=== PATIENT | female | born 1965 | race Caucasian/White ===

== ENCOUNTER → 2023-07-28 06:27 | Day surgery (SDC) | payer OTHER, SELFPAY | LOC: GI 06:27 | PROVIDERS: ATTENDING PHYSICIAN Internal Medicine Gastroenterology; FAMILY PHYSICIAN Emergency Medicine | DX: K57.30 Diverticulosis of large intestine without perforation or abscess without bleeding (principal); K64.8 Other hemorrhoids; Z09 Encounter for follow-up examination after completed treatment for conditions other than malignant neoplasm; Z86.010 Personal history of colon polyps | CPT/HCPCS: 45378 ==

== ENCOUNTER 2023-08-29 09:53 | Emergency (ER) | payer OTHER, SELFPAY ==
[2023-08-29 10:11] VITALS: BP 161/109
[2023-08-29 10:30] VITALS: BP 117/83
[2023-08-29 11:00] VITALS: BP 120/78
[2023-08-29 11:01] VITALS: BMI 36.8
[2023-08-29] MEDS: CARDIZEM 125 IV (11:10)
[2023-08-29] MEDS: CARDIZEM 10 MG IV (11:11)
[2023-08-29 11:23] LABS: % Basophils 0.1 % (0-2); % Eosinophils 0.1 % (0-6); % Immature Granulocytes 0.6 % (0-0.5); % Lymphocytes 26.6 % (20.5-51.1); % Monocytes 9.1 % (1.7-9.3); % Neutrophils 63.5 % (42.2-75.2); Absolute Immature Granulocytes 0.1 10^3/uL (0-0.05); Absolute Lymphocytes 2.7 10^3/uL (1.2-3.4); Absolute Monocytes 0.9 10^3/uL (0.1-0.6); Absolute Neutrophils 6.5 10^3/uL (1.4-6.5); Hematocrit 40.6 % (37.0-47.0); Hemoglobin 14.3 g/dL (12.0-16.0); Mean Corp Hgb Conc. 35.2 g/dL (33.0-37.0); Mean Corpuscular Hgb 28.9 pg (27.0-31.0); Mean Corpuscular Volume 82.2 fL (81.0-99.0); Nucleated Red Blood Cells % 0 %; Platelet Count 362 10^3/uL (130-400); Red Blood Cell Count 4.94 10^6/uL (4.20-5.40); Red Cell Dist. Width 13.7 % (11.5-14.5); White Blood Cell Count 10.2 10^3/uL (4.8-10.8)
[2023-08-29 11:36] LABS: ALT (SGPT) 19 U/L (0-35); AST (SGOT) 23 U/L (14-36); Albumin 4.3 g/dl (3.5-5.0); Alkaline Phosphatase 90 U/L (38-126); Blood Urea Nitrogen 16 mg/dl (7-17); Calcium 9.1 mg/dl (8.4-10.2); Carbon Dioxide 24 mmol/L (22-30); Chloride 107 mmol/L (98-107); Estimated Creatinine Clearance 120 ml/min; Glucose 116 mg/dl (70-99); Magnesium 2.2 mg/dl (1.6-2.3); Potassium 4.1 mmol/L (3.5-5.1); Sodium 138 mmol/L (135-145); Total Bilirubin 0.8 mg/dl (0.2-1.3); Total Protein 7.4 g/dl (6.3-8.2); eGFR > 60.00
[2023-08-29 11:37] LABS: APTT 29.4 Sec (23.4-35.0)
[2023-08-29 12:00] VITALS: BP 103/73
[2023-08-29 12:07] LABS: TSH 1.27 uIU/ml (0.47-4.68)
[2023-08-29] MEDS: NSS 1000 IV (12:36)
[2023-08-29 13:00] VITALS: BP 113/87
[2023-08-29 14:00] VITALS: BP 110/84
[2023-08-29] MEDS: LOPRESSOR 100 MG PO (14:11)
[2023-08-29] MEDS: ELIQUIS 5 MG PO (14:11)
--- NOTE | 2023-08-29 14:19 | ED.GENMED ---
History of Present Illness
General
Chief Complaint: Heart Rate Problem
Source: patient
Time Seen by Provider: 08/29/23 10:26
Travel History
Have you had any contact with someone who has COVID-19?: No
Do you have any symptoms of coronavirus? Fever > 100 degrees, chills, cough, shortness of breath, sore throat, loss of taste or smell, muscle aches, or headache?: No
History of Present Illness
History of Present Illness:
57-year-old female with a history of A-fib who presents after she began to feel fluttering. She states symptoms began Wednesday and she was hoping she would go back out of it. The patient admits that she had been off of her Xarelto due to a knee
surgery. Patient states she did take 2 doses however since she went in A-fib. Patient denies chest pain or shortness of breath. No leg swelling. 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
Past History
Past History
ED Past Medical History: Arrthythmia (Atrial fibrillation), GERD (Takes ranitidine), HTN (Takes amlodipine), Hypercholesterolemia (Takes Ritorvastatin) and Other (Seasonal allergies. Takes Singulair and Danette)
ED Past Surgical History: Orthopedic
Social History
Tobacco: Former smoker
Alcohol: Occasional
Drug: None
Personal:
Living: with family
Employment: Employed
Family History
Family History: Other (Noncontributory)
Phy Exam
Physical Exam
Physical Exam:
CONSTITUTIONAL Patient alert and oriented to person, place and time. Well-appearing. Vital signs reviewed.
HEAD atraumatic, normocephalic.
EYES eyelids normal to inspection, Pupils equally round and reactive to light, Extraocular muscles intact, Conjunctiva normal, Sclera normal.
NECK normal range of motion, Trachea midline, no jugular venous distention.
RESPIRATORY CHEST No respiratory distress noted, Chest expansion equal, Bilateral breath sounds clear.
CARDIOVASCULAR irregularly irregular and tachycardic, Heart sounds normal.
ABDOMEN abdomen nontender, Bowel sounds normal. No distention.
BACK normal inspection, no obvious deformities
UPPER EXTREMITY range of motion normal, Motor strength normal, no cyanosis, no edema.
LOWER EXTREMITY range of motion normal, Motor strength normal, no cyanosis, no edema.
NEURO Speech normal, No focal motor deficits, Warren coma scale 15, Memory normal, Cranial Nerves intact to screening exam.
SKIN skin warm, dry, and normal in color.
Course
Orders/Labs/Results
Orders:
Orders
08/29/23 10:13
EKG [Electrocardiogram (*1)] Urgent
Reason for Study: Atrial Fibrillation
EKG- Treatment ONCE
08/29/23 11:00
Diltiazem 125 mg/125 ml Nss [Cardizem] 125 mg in 125 ml IV NOW
Initial dose in mg/hr, then titrate:: 5
Titrate to keep:: Heart rate 80-100 bpm
Titrate by mg/hr:: 5 mg/hr
Frequency of titrations (minutes):: 15
Maximum dose in mg/hr:: 15
Diltiazem HCl [Cardizem] 10 mg IV NOW STA
08/29/23 11:08
Complete Blood Count/With Diff Urgent
Comprehensive Metabolic Panel Urgent
Magnesium Urgent
PTT Urgent
Comment: Obtain baseline before beginning heparin infusion if not already collected
TSH Urgent
08/29/23 12:33
0.9% Sodium Chloride 1000 ml [Nss] 1,000 ml IV BOLUS
08/29/23 13:48
Apixaban [Eliquis] 5 mg PO NOW STA
Metoprolol [Lopressor] 100 mg PO NOW STA
Abnormal Lab Results
08/29/23
11:08
Abs Immat Gran (auto) 0.1 H 10^3/uL
(0-0.05)
Absolute Monos (auto) 0.9 H 10^3/uL
(0.1-0.6)
Immature Gran % 0.6 H %
(0-0.5)
Glucose 116 H mg/dl
(70-99)
08/29/23 11:08
08/29/23 11:08
Vital Signs
Initial and Last Documented VS:
Initial Vital Signs
Temp Pulse Resp BP Pulse Ox
98.1 F 95 16 161/109 94
08/29/23 10:11 08/29/23 10:11 08/29/23 10:11 08/29/23 10:11 08/29/23 10:11
Last Documented Vital Signs
Temp Pulse Resp BP Pulse Ox
98.1 F 101 10 113/87 98
08/29/23 10:11 08/29/23 13:00 08/29/23 13:00 08/29/23 13:00 08/29/23 13:00
MDM/Problems Addressed
MDM/Problems Addressed:
Atrial fibrillation with RVR
Acute Exacerbation and/or Progression of Chronic Illness: Arrhythmia
*Pulse Oximetry
Patient hypoxic: no
*EKG
Interpreted by ED Provider?: Yes
Interpretation: abnormal
Rate: tachycardiac
Rhythm: a-fib
[place]: normal axis
Ischemia: non-specific ST changes
*Internal Medicine Doctor Interpretation
Rate: tachycardiac
Interpretation: abnormal
Rhythm: a-fib
*Critical Care Note
Total Time (30-74mins, 75-104mins- exclusive of procedures): 30 minutes
Data Reviewed
Further Testing Considered But Not Given:
Considered PE study but patient already on anticoagulation and no hypoxia or shortness of breath
Patient Management
Escalation/DeEscalation of care consider admission/obs:
Patient appears well. She has not been on her Xarelto for very long and I do not think that emergency cardioversion is warranted at this time as she is very stable. Advised that she continue her Eliquis. She also had not taken her Lopressor
today. Continue Lopressor twice daily. Outpatient follow-up with cardiology for planned cardioversion and JUDY if symptoms persist
ED Attending Note
-
Portions of this chart may have been created with voice recognition software.� Occasional wrong word or��sound alike� substitutions may have occurred due to the inherent limitations of voice recognition software.
Discharge Plan
Departure
Patient Disposition: Home (Routine Discharge)
Date of Disposition: 08/29/23
Time of Disposition: 14:27
Patient with high blood pressure during this ER visit?: No
Discharge Problem:
Atrial fibrillation with rapid ventricular response
Instructions: Atrial Fibrillation (DC)
Prescriptions:
No Action
fexofenadine [Danette] 180 MG tablet
180 mg PO DAILY PRN (Reason: allergies)
montelukast 10 MG tablet
10 mg PO HS
zolpidem 5 MG tablet
2.5 mg PO HSPRN PRN (Reason: insomnia)
rosuvastatin 5 MG tablet
5 mg PO DAILY
metoprolol succinate 50 MG tablet extended release 24 hr
50 mg PO BID Qty: 60 5RF
Patient Comments:
04/24/22 - TAKES WITH TOPROL XL 25MG TO = 75MG BID
metoprolol succinate 25 MG tablet extended release 24 hr
25 mg PO BID
Patient Comments:
04/24/22 - TAKES WITH TOPROL XL 50MG TO = 75MG BID
albuterol sulfate 1 PUFF HFA aerosol inhaler
2 puff inhalation R Q6HPRN PRN (Reason: SOB)
fluticasone propionate 1 SPRAY spray,suspension
1 spray intranasal DAILYPRN PRN (Reason: allegies/congestion)
Move Free Joint Health 1 EACH tablet
1 ea PO DAILY
acetaminophen 500 mg Tablet
1,000 mg PO DAILYPRN PRN (Reason: headache)
coenzyme Q10 100 mg Tablet,Chewable
200 mg PO DAILY
Advair HFA 230-21 mcg/actuation HFA aerosol inhaler
2 puff INHALATION R BIDPRN PRN (Reason: sob seasonal spring/allergies)
Multivitamin Gummies 200 mcg Tablet,Chewable
2 tab PO DAILY
Probiotic 3 billion cell Tablet,Chewable
2 tab PO DAILY
pantoprazole 40 MG tablet,delayed release (DR/EC)
40 mg PO DAILY
Eliquis 5 MG tablet
5 mg PO BID
metoprolol tartrate 100 mg tablet
100 mg PO BID Qty: 20 0RF
potassium chloride 20 mEq tablet extended release
20 meq PO DAILY Qty: 5 0RF
Referrals:
Consuelo Kearney MD [Family Provider] -
Activity Restrictions/Additional Instructions:
Please continue your Lopressor and your blood thinner Eliquis. Please call your automotive electrician tomorrow to plan follow-up. If your symptoms persist, an outpatient elective cardioversion may be necessary. Return immediately for shortness of breath,
chest pain, lightheadedness, passing out episode or any other concerns.
Interventions
Interventions:
*Risk Screen - Suicide Last Done: 08/29/23 11:01
*Neglect/Abuse Screening Last Done: 08/29/23 11:01
*ED COVID-19 Vaccine History Last Done: 08/29/23 10:20
ED- Cardiac Assessment Last Done: 08/29/23 11:01
ED- Pulmonary Assessment Last Done: 08/29/23 11:01
== END 2023-08-29 15:21 | disposition home or self-care (01) ==
LOC: EMR 09:53
PROVIDERS: EMERGENCY PHYSICIAN Emergency Medicine; FAMILY PHYSICIAN Emergency Medicine
DX: I48.91 Unspecified atrial fibrillation (principal); K21.9 Gastro-esophageal reflux disease without esophagitis; I10 Essential (primary) hypertension; E78.00 Pure hypercholesterolemia, unspecified; Z87.891 Personal history of nicotine dependence
CPT/HCPCS: 99283; 96374; 96376; 96361; 80053; 83735; 84443; 85025; 85730; 93005

== ENCOUNTER → 2023-09-03 07:22 | Day surgery (SDC) | payer OTHER, SELFPAY ==
[2023-09-03 08:29] VITALS: BMI 38.4
--- NOTE | 2023-09-03 10:35 | ITS.CL.CARDI ---
Urologist Md - Cardioversion
Cardioversion
Procedure Report:
Procedure: JUDY-guided electrical cardioversion
Pre-operative diagnosis: Persistent atrial fibrillation
Post-operative diagnosis: Persistent atrial fibrillation status post DC cardioversion to sinus rhythm
Anesthesia: MAC
Attending Physician: Juan Carlos Caban MD
Procedure Description: The patient was brought to the electrophysiology laboratory in the fasting state. Informed consent was obtained from the patient prior to the start of the procedure. Adherence to anticoagulation was confirmed. Electrodes were
placed on the patient and connected to an external defibrillator. Monitoring of blood pressure, ECG tracings, and pulse oximetry was initiated. The pads were applied to the patient in the anterior and posterior positions. The patient was sedated by
the anesthesiologist. A JUDY (reported separately) was performed prior to the cardioversion. No left atrial or left atrial appendage thrombus was seen. After the JUDY probe was removed 300 joule, 360 joule and subsequent 360 joule biphasic
synchronized shocks was delivered to the patient under MAC anesthesia. Sinus rhythm was successfully restored. The patient recovered uneventfully from MAC anesthesia. There were no immediate post-procedure complications. The patient left the lab in
good condition. The attending physician was present throughout the entire procedure.
Impression: Successful JUDY-guided direct current cardioversion with mormonism of sinus rhythm after 300 joule, 360 joule and subsequent 360 joule biphasic synchronized shocks.
== END ==
LOC: CATH 07:22
PROVIDERS: ATTENDING PHYSICIAN Internal Medicine Cardiovascular Disease; FAMILY PHYSICIAN Emergency Medicine; OTHER PHYSICIAN Internal Medicine Cardiovascular Disease
DX: I48.19 Other persistent atrial fibrillation (principal); I34.0 Nonrheumatic mitral (valve) insufficiency; I31.39 Other pericardial effusion (noninflammatory); I70.0 Atherosclerosis of aorta; Q21.12 Patent foramen ovale
CPT/HCPCS: 93312; 93320; 93325; 92960

== ENCOUNTER → 2023-12-13 09:53 | Outpatient (REF) | payer OTHER, SELFPAY | LOC: RAD 09:53 | PROVIDERS: ATTENDING PHYSICIAN Emergency Medicine | DX: N95.1 Menopausal and female climacteric states (principal) | CPT/HCPCS: 71271; 77080 ==

== ENCOUNTER 2024-02-15 13:38 | Day surgery (SDC) | payer OTHER, SELFPAY ==
--- NOTE | 2024-02-15 14:18 | ITS.CL.IMPLP ---
Aerospace Engineer - Implant Loop
Implant Loop
Procedure Report:
Date of Procedure: February 15, 2024
Procedure: Insertable Loop Recorder Implantation
Indication:
Atrial fibrillation
Procedure:
The patient was brought to the procedure area in a fasting state. The anterior chest was prepped and draped in standard sterile fashion. The fourth intercostal space along the left sternal border was identified and this area was anesthetized with 10
mL of 1% lidocaine. After gathering the skin in this area, a small punch incision was made at approx intercostal space 4-5 at left costo-sternal junction using the provided scalpel/punch tool. The loop recorder was loaded into the tunneling device.
A tunnel was created in the subcutaneous tissue at a 45� angle along the coronal plane away from the sternum and towards the left flank. The tunneling device was inverted and the plunger was depressed, inserting the loop recorder into the
subcutaneous space. The tunneling device was removed. Manual pressure provide hemostasis. Adequate signal was confirmed. The skin was closed with steri-strips. The estimated blood loss was < 1 cc. A clean dressing was placed over the wound.
There were no complications.
Implant:
[employer] Reveal LINQ II
Conclusion: Uncomplicated implantation of loop recorder.
Recommendation: Routine ILR care.
== END 2024-02-15 14:19 | disposition home or self-care (01) ==
LOC: CATH 13:38
PROVIDERS: ATTENDING PHYSICIAN Internal Medicine Cardiovascular Disease; FAMILY PHYSICIAN Emergency Medicine
DX: Z09 Encounter for follow-up examination after completed treatment for conditions other than malignant neoplasm (principal); I48.91 Unspecified atrial fibrillation; Z79.899 Other long term (current) drug therapy
CPT/HCPCS: 33285; C1764

== ENCOUNTER → 2024-04-05 11:12 | Outpatient (REF) | payer OTHER, SELFPAY | LOC: WDC 11:12 | PROVIDERS: ATTENDING PHYSICIAN Emergency Medicine | DX: Z12.31 Encounter for screening mammogram for malignant neoplasm of breast (principal) | CPT/HCPCS: 77063; 77067 ==

== ENCOUNTER → 2025-01-01 13:23 | Outpatient (REF) | payer OTHER, SELFPAY | LOC: HWRAD 13:23 | PROVIDERS: ATTENDING PHYSICIAN Emergency Medicine | DX: Z87.891 Personal history of nicotine dependence (principal) | CPT/HCPCS: 71271 ==